=== PATIENT | female | born 1990 | race Hispanic/Latino ===

== ENCOUNTER 2019-07-13 13:45 | Emergency (ER) | payer SELFPAY ==
--- NOTE | 2019-07-13 15:33 | Event Note ---
ED Screening Note Date of service: 07/13/19 Time: 15:30 ED Screening Note: 29 female yo f presents with cc of heroin withrawal stating last use 2 days ago cc of body pains and chills This initial assessment/diagnostic orders/clinical plan/treatment(s) is/are subject to change based on patients health status, clinical progression and re- assessment by fellow clinical providers in the ED. Further treatment and workup at subsequent clinical providers discretion. Patient/guardian urged not to elope from the ED as their condition may be serious if not clinically assessed and managed. Initial orders include: labs, ua,uds
[2019-07-13] MEDS ORDERED: SODIUM CHLORIDE 0.9% 1000 ML 1,000 ML IV ONE (16:29)
[2019-07-13 16:39] LABS: Basophils # (Auto) 0.1 K/mm3 (0.0-0.1); Basophils % (Auto) 0.7 % (0.0-1.8); Eosinophils # (Auto) 0.1 K/mm3 (0.0-0.4); Eosinophils % (Auto) 0.4 % (0.0-4.3); Hematocrit 46.3 % (30.3-42.9); Hemoglobin 15.1 gm/dl (10.1-14.3); Lymphocytes # (Auto) 2.9 K/mm3 (1.2-5.4); Lymphocytes % (Auto) 20.1 % (13.4-35.0); Mean Corpuscular HGB Conc 33 % (30-34); Mean Corpuscular Volume 82 fl (79-97); Monocytes # (Auto) 0.9 K/mm3 (0.0-0.8); Monocytes % (Auto) 5.9 % (0.0-7.3); Platelet Count 283 K/mm3 (140-440); Red Blood Count 5.67 M/mm3 (3.65-5.03); Red Cell Distribution Width 15.3 % (13.2-15.2)
[2019-07-13 17:06] LABS: BUN/Creatinine Ratio 20; Blood Urea Nitrogen 14 mg/dL (7-17); Hemolysis Index 6
[2019-07-13 17:36] LABS: Alanine Aminotransferase 34 units/L (7-56); Albumin 4.5 g/dL (3.9-5)
[2019-07-13 17:40] LABS: Bilirubin,Direct < 0.2 mg/dL (0-0.2)
--- NOTE | 2019-07-13 18:05 | Emergency Department Report ---
ED General Adult HPI - General Chief complaint: Medical Clearance Stated complaint: HEROIN WITHDRAWAL Time Seen by Provider: 07/13/19 16:11 Source: patient Mode of arrival: Ambulatory Limitations: No Limitations - History of Present Illness Initial comments: This is a 29-year-old female who purportedly presented to the emergency department for assistance with withdrawal from heroin. According to the charge nurse patient was fully ambulatory about the emergency department but somewhat agitated. She was placed in the psychiatric section of the emergency department. However, I had her transferred to a medical bed when I found her overly lethargic. Pupils were not pinpoint. She was apparently not fully cooperative. Medical screening was ordered. -: unknown - Related Data Allergies Allergy/AdvReac Type Severity Reaction Status Date / Time No Known Allergies Allergy Unverified 07/13/19 16:57 ED Review of Systems ROS: Stated complaint: HEROIN WITHDRAWAL Other details as noted in HPI Comment: Unobtainable due to pts medical conditions ED Past Medical Hx - Past Medical History Additional medical history: Unknown - Social History Smoking Status: Unknown if ever smoked Substance Use Type: Heroin, Other ED Physical Exam - General Limitations: Altered Mental Status, Physical Limitation General appearance: obese - Head Head exam: Present: other (Epistaxis noted no obvious head injury) - Eye Eye exam: Present: EOMI Pupils: Present: other (Reactive) - ENT ENT exam: Present: other - Neck Neck exam: Absent: tenderness (Impossible to fully assess secondary to altered mental status) - Respiratory Respiratory exam: Present: normal lung sounds bilaterally - Cardiovascular Cardiovascular Exam: Present: regular rate, normal rhythm. Absent: systolic murmur, diastolic murmur, rubs, gallop - GI/Abdominal GI/Abdominal exam: Present: soft, normal bowel sounds. Absent: distended, tend erness, guarding, rebound - Extremities Exam Extremities exam: Present: normal inspection - Back Exam Back exam: Present: normal inspection - Neurological Exam Neurological exam: Present: altered - Psychiatric Psychiatric exam: Present: flat affect - Skin Skin exam: Present: warm, dry, intact, normal color. Absent: rash ED Course Vital Signs 07/13/19 07/13/19 07/13/19 15:06 15:30 16:31 Temperature 97.4 F L 97.4 F L 98.0 F Pulse Rate 93 H 89 101 H Respiratory 20 20 16 Rate Blood Pressure 121/92 121/92 150/85 Blood Pressure [Right] O2 Sat by Pulse 100 100 100 Oximetry 07/13/19 07/13/19 07/13/19 16:54 17:01 17:15 Temperature Pulse Rate 83 89 77 Respiratory 27 H 24 18 Rate Blood Pressure 131/84 111/73 129/87 Blood Pressure [Right] O2 Sat by Pulse 100 94 94 Oximetry 07/13/19 07/13/19 07/13/19 17:31 17:45 18:00 Temperature Pulse Rate Respiratory 21 19 20 Rate Blood Pressure 129/87 115/71 109/74 Blood Pressure [Right] O2 Sat by Pulse 98 98 97 Oximetry 07/13/19 07/13/19 07/13/19 18:15 18:30 18:45 Temperature Pulse Rate Respiratory 21 22 Rate Blood Pressure 115/78 123/81 123/81 Blood Pressure [Right] O2 Sat by Pulse 99 98 83 L Oximetry 07/13/19 07/13/19 07/13/19 18:55 19:00 19:15 Temperature 98.5 F Pulse Rate 81 70 Respiratory 18 21 Rate Blood Pressure 125/79 126/85 Blood Pressure 123/81 [Right] O2 Sat by Pulse 100 100 99 Oximetry 07/13/19 07/14/19 07/14/19 19:30 03:00 07:20 Temperature 98.8 F Pulse Rate 69 84 71 Respiratory 22 16 12 Rate Blood Pressure 130/83 Blood Pressure 132/74 139/93 [Right] O2 Sat by Pulse 98 99 Oximetry - Reevaluation(s) Reevaluation #1: Medical screening was ordered. I did note that although the nursing staff initiated IV fluids, does not appear that a phlebotomy has taken place yet. Charge nurse has been notified. CT is pending. The patient is signed out to Dr. Moctezuma to complete the medical screening. 07/13/19 18:04 ED Medical Decision Making - Lab Data Result diagrams: 07/13/19 16:18 07/13/19 16:18 Critical care attestation.: If time is entered above; I have spent that time in minutes in the direct care of this critically ill patient, excluding procedure time. ED Disposition Clinical Impression: Altered mental status Qualifiers: Altered mental status type: stupor Qualified Code(s): R40.1 - Stupor Disposition: DC-01 TO HOME OR SELFCARE Is pt being admited?: No Does the pt Need Aspirin: No Condition: Stable Referrals: CELE SAMSON MD [Primary Care Provider] - 3-5 Days Forms: Work/School Release Form(ED) Time of Disposition: 12:41
[2019-07-13 22:18] LABS: Amphetamine Screen,Urine PRESUMPTIVE NEGATIVE; Cocaine Screen,Urine PRESUMPTIVE NEGATIVE; Methadone Screen,Urine PRESUMPTIVE NEGATIVE
[2019-07-13 22:19] LABS: Amorphous Crystals,Urine Few; Bacteria,Urine 2+ /HPF (Negative); Bilirubin,Urine NEG (Negative); Blood,Urine NEG (Negative); Color,Urine Amber (Yellow); Mucus,Urine 2+ /HPF; Protein,Urine <15 mg/dL mg/dL (Negative); Urobilinogen,Urine < 2.0 mg/dL (<2.0)
--- NOTE | 2019-07-13 22:30 | Cat Scan Report ---
CT HEAD WITHOUT CONTRAST INDICATION / CLINICAL INFORMATION: headache. TECHNIQUE: All CT scans at this location are performed using CT dose reduction for ALARA by means of automated e xposure control. COMPARISON: None available. FINDINGS: HEMORRHAGE: None. EXTRA-AXIAL SPACES: Normal in size and morphology for the patient's age. Small arachnoid cyst left fr ontal convexity. VENTRICULAR SYSTEM: Normal in size and morphology for the patient's age. CEREBRAL PARENCHYMA: No significant abnormality. No acute territorial infarct. MIDLINE SHIFT OR HERNIATION: None. CEREBELLUM / BRAINSTEM: No significant abnormality. ORBITS: Normal as visualized. SOFT TISSUES of HEAD: No significant abnormality. CALVARIUM: No significant abnormality. PARANASAL SINUSES / MASTOID AIR CELLS: Normal as visualized. ADDITIONAL FINDINGS: None. IMPRESSION: 1. No acute intracranial abnormality. Signer Name: Ellis Saavedra MD Signed: 07/13/2019 10:26 PM Workstation Name: [id number]
--- NOTE | 2019-07-13 22:51 | Cat Scan Report ---
CLINICAL DATA: [See Reason for Exam] trauma TECHNICAL DATA: CT imaging of the cervical spine was performed in the axial, sagittal, and coronal projections and ramon ne algorithm in axial projection in the soft tissue algorithm. All CT scans at this location are performed using CT dose reduction for ALARA by means of automated e xposure control. C1-C2: The ring of C1 is normal. The odontoid is normal. There is no evidence of an offset. There is no evidence of a fracture. The spinal canal is well maintained. C2-C3: The spinal canal is well maintained. The neural foramina are normal. The vertebral bodies a re normal. The posterior elements are intact. There is no evidence of a fracture. C3-C4: The spinal canal is well maintained. The neural foramina are normal. The vertebral bodies a re normal. The posterior elements are intact. There is no evidence of a fracture. C4-C5: The spinal canal is well maintained. The neural foramina are normal. The vertebral bodies a re normal. The posterior elements are intact. There is no evidence of a fracture. C5-C6: The spinal canal is well maintained. The neural foramina are normal. The vertebral bodies a re normal. The posterior elements are intact. There is no evidence of a fracture. C6-C7: The spinal canal is well maintained. The neural foramina are normal. The vertebral bodies a re normal. The posterior elements are intact. There is no evidence of a fracture. C7-T1: The spinal canal is well maintained. The neural foramina are normal. The vertebral bodies a re normal. The posterior elements are intact. There is no evidence of a fracture. IMPRESSION: There is no evidence of acute injury involving the cervical spine. Signer Name: Bharath Mcarthur MD Signed: 07/13/2019 10:46 PM Workstation Name: [id number]
[2019-07-13 22:53] LABS: Benzodiazepines Screen,Urine PRESUMPTIVE POSITIVE; Cannabinoid Screen,Urine PRESUMPTIVE POSITIVE; Opiate Screen,Urine PRESUMPTIVE POSITIVE
--- NOTE | 2019-07-14 01:14 | Emergency Department Report ---
Blank Doc - Documentation Documentation: Patient medically clear Awaiting psychiatric consult
[2019-07-14 07:46] VITALS: BP 139/93
== END 2019-07-14 10:43 | disposition home or self-care (01) ==
LOC: ED 13:45
DX: R41.82 Altered mental status, unspecified (principal); F11.93 Opioid use, unspecified with withdrawal
CPT/HCPCS: 36415; 70450; 72125; 80048; 80076; 80307; 81001; 82550; 82553; 85025; 99285; J7030; 80320; G0480